=== PATIENT | female | born 1945 | race African-American/Black ===

== ENCOUNTER 2019-05-26 09:12 | Inpatient (IN) | payer MEDICARE, MEDICAID ==
[~2019-05-26] VITALS: Ht 182.9 cm; Wt 25.1 kg
[2019-05-26] MEDS ORDERED: LORAZEPAM 2MG/ML CPJ IV ONE (11:15)
[2019-05-26 12:00] LABS: BASOPHILS % 0.4 % (0.0-2.0); EOSINOPHILS % 0.4 % (0.0-5.0); HEMATOCRIT. 43.6 % (36.0-48.0); HEMOGLOBIN. 14.4 g/dL (12.0-16.0); MEAN CORPUSCULAR HEMOGLOBIN 28.8 pg (28.0-32.0); MEAN CORPUSCULAR VOLUME 86.9 fL (81.0-99.0); MEAN PLATELET VOLUME 10.3 fl (7.4-10.4); MONOCYTES % 3.9 % (2.0-8.0); NEUTROPHILS % 74.3 % (40.0-76.0); PLATELET 130 x1000/uL (130-400); RED BLOOD CELL COUNT 5.02 mill/uL (4.2-5.4); RED CELL DISTRIBUTION WIDTH 12.7 % (11.6-14.6)
[2019-05-26 14:12] LABS: CHLORIDE 105 mEq/L (98-107)
[2019-05-26 15:07] VITALS: BP 137/74
[2019-05-26] MEDS ORDERED: ZOLP5TAB2 PO (15:31)
[2019-05-26] MEDS ORDERED: MORPHINE SULFATE 2 MG/ML CPJ (NOT FOR IM USE) IV PRN ×2 (15:45→21:00)
[2019-05-26] MEDS ORDERED: SODIUM CHLORIDE 0.9% 1,000 ML IV SCH (15:45)
[2019-05-26 16:00] VITALS: BP 122/74
[2019-05-26 20:00] VITALS: BP 147/80
[2019-05-26] MEDS ORDERED: ONDANSETRON HCL 4MG/2ML INJ IV PRN (21:00)
[2019-05-26] MEDS ORDERED: ENOXAPARIN 40MG/0.4ML SYR SUBCUT SCH (21:00)
[2019-05-26] MEDS ORDERED: HYDROCODONE/ACETAMINOPHEN 5/325MG TABLET PO PRN (21:00)
[2019-05-26] MEDS ORDERED: LORAZEPAM 2MG/ML CPJ IV PRN (21:00)
[2019-05-26] MEDS ORDERED: CEFTRIAXONE 1 G PREMIX 50 ML IV SCH (22:00)
[2019-05-26] MEDS: SODIUM CHLORIDE 0.9% 1,000 ML IV SCH (23:04)
[2019-05-26] MEDS: ZOLPIDEM TARTRATE 5MG TABLET PO SCH (23:05)
[2019-05-27] VITALS: BP 108/62
[2019-05-27 04:00] VITALS: BP 117/86
[2019-05-27] MEDS: SODIUM CHLORIDE 0.9% 1,000 ML IV SCH ×2 (06:03→16:31)
[2019-05-27 07:38] LABS: BASOPHILS % 0.5 % (0.0-2.0); EOSINOPHILS % 2.5 % (0.0-5.0); HEMATOCRIT. 38.2 % (36.0-48.0); HEMOGLOBIN. 12.6 g/dL (12.0-16.0); LYMPHOCYTES % 37.3 % (20.0-50.0); MEAN CORPUSCULAR HEMOGLOBIN 28.8 pg (28.0-32.0); MEAN CORPUSCULAR VOLUME 87.2 fL (81.0-99.0); MEAN PLATELET VOLUME 10.5 fl (7.4-10.4); MONOCYTES % 5.6 % (2.0-8.0); NEUTROPHILS % 54.1 % (40.0-76.0); PLATELET 88 x1000/uL (130-400); RED BLOOD CELL COUNT 4.37 mill/uL (4.2-5.4); RED CELL DISTRIBUTION WIDTH 12.5 % (11.6-14.6)
[2019-05-27 08:00] VITALS: BP 156/78
[2019-05-27 08:35] LABS: CHLORIDE 108 mEq/L (98-107)
[2019-05-27 08:42] LABS: PHOSPHORUS 2.5 mg/dL (2.5-4.9)
[2019-05-27] MEDS: THIAMINE HCL 100MG TABLET PO SCH (09:23)
[2019-05-27] MEDS: FOLIC ACID 1MG TABLET PO SCH (09:23)
[2019-05-27 12:00] VITALS: BP 144/84
[2019-05-27] MEDS: MAGNESIUM 2 G PREMIX 50 ML IV NR ×2 (13:08→13:14)
[2019-05-27] MEDS: CEFTRIAXONE 1,000 MG in DEXTROSE 5% WATER 50 ML IV SCH (17:08)
[2019-05-27 18:31] LABS: CLARITY URINE CLEAR (CLEAR); COLOR URINE YELLOW (YELLOW); KETONES URINE NEGATIVE (NEGATIVE); LEUKOCYTE ESTERASE URINE TRACE (NEGATIVE); NITRITE URINE NEGATIVE (NEGATIVE); OCCULT BLOOD URINE NEGATIVE (NEGATIVE); PROTEIN URINE NEGATIVE (NEGATIVE); SPECIFIC GRAVITY URINE 1.018 (1.005-1.030)
[2019-05-27 18:52] LABS: *AMPHETAMINES SCREEN URINE NEGATIVE (NEGATIVE); *BENZODIAZEPINES SCREEN URINE NEGATIVE (NEGATIVE); *COCAINE SCREEN URINE NEGATIVE (NEGATIVE)
[2019-05-27 18:53] LABS: CANNABINOID URINE SCREEN NEGATIVE (NEGATIVE); METHADONE URINE SCREEN NEGATIVE (NEGATIVE); OPIATES URINE SCREEN NEGATIVE (NEGATIVE); PHENCYCLIDINE URINE SCREEN NEGATIVE (NEGATIVE)
[2019-05-27 18:57] LABS: *BARBITURATES SCREEN URINE NEGATIVE (NEGATIVE)
[2019-05-27] MEDS: ZOLPIDEM TARTRATE 5MG TABLET PO SCH (23:00)
[2019-05-28] MEDS: SODIUM CHLORIDE 0.9% 1,000 ML IV SCH ×3 (03:00→23:00)
[2019-05-28] MEDS: FOLIC ACID 1MG TABLET PO SCH (08:44)
[2019-05-28] MEDS: THIAMINE HCL 100MG TABLET PO SCH (08:44)
[2019-05-28] MEDS: MULTIVITAMINS,THER W-MINERALS TABLET PO SCH (08:44)
[2019-05-28] MEDS: CEFTRIAXONE 1,000 MG in DEXTROSE 5% WATER 50 ML IV SCH (17:31)
[2019-05-28] MEDS: MIRTAZAPINE 15MG TABLET PO SCH (20:14)
[2019-05-28] MEDS: ZOLPIDEM TARTRATE 5MG TABLET PO SCH (23:00)
[2019-05-29] MEDS: FOLIC ACID 1MG TABLET PO SCH (09:00)
[2019-05-29] MEDS: THIAMINE HCL 100MG TABLET PO SCH (09:00)
[2019-05-29] MEDS: SODIUM CHLORIDE 0.9% 1,000 ML IV SCH (09:00)
[2019-05-29] MEDS: MULTIVITAMINS,THER W-MINERALS TABLET PO SCH (09:00)
[2019-05-29] MEDS: LORAZEPAM 0.5MG TABLET PO SCH (09:00)
[2019-05-29] MEDS: RISPERIDONE 1MG TABLET PO SCH (09:00)
[2019-05-29] MEDS ORDERED: POLYETHYLENE GLYCOL 3350 (17GM) 1 DOSE PACK PO SCH (21:00)
[2019-05-29] MEDS: MIRTAZAPINE 15MG TABLET PO SCH (21:00)
[2019-05-29] MEDS: ZOLPIDEM TARTRATE 5MG TABLET PO SCH (22:58)
[2019-05-30] MEDS: MULTIVITAMINS,THER W-MINERALS TABLET PO SCH (09:00)
[2019-05-30] MEDS ORDERED: DOCUSATE SODIUM 100MG CAPSULE PO SCH (09:00)
[2019-05-30] MEDS: LORAZEPAM 0.5MG TABLET PO SCH (09:00)
[2019-05-30] MEDS: THIAMINE HCL 100MG TABLET PO SCH (09:00)
[2019-05-30] MEDS: RISPERIDONE 1MG TABLET PO SCH (09:00)
[2019-05-30] MEDS: FOLIC ACID 1MG TABLET PO SCH (09:00)
[2019-05-30 11:57] VITALS: BP 144/92
[2019-05-30] MEDS ORDERED: CEFTRIAXONE 1 G PREMIX 50 ML IV SCH (18:00)
== END 2019-05-30 12:20 | DRG 689 ==
LOC: ER 09:24 → EDBEDREQTM 11:54 → EDBEDREQ 11:54 → ENRESERV 12:00 → 6EST 14:39
PROVIDERS: ADMIT Internal Medicine Nephrology; ATTEND Internal Medicine Nephrology
DX: N39.0 Urinary tract infection, site not specified (principal); G92 Toxic encephalopathy; E44.1 Mild protein-calorie malnutrition; Z68.1 Body mass index [BMI] 19.9 or less, adult; F20.9 Schizophrenia, unspecified; F31.9 Bipolar disorder, unspecified; I10 Essential (primary) hypertension; D69.6 Thrombocytopenia, unspecified; D72.829 Elevated white blood cell count, unspecified; E83.42 Hypomagnesemia; R62.7 Adult failure to thrive; R53.81 Other malaise; R26.9 Unspecified abnormalities of gait and mobility; Z79.899 Other long term (current) drug therapy
CPT/HCPCS: 36415; 71045; 80048; 80053; 80305; 81003; 82378; 83036; 83735; 84100; 84484; 85025; 93005; 96374; 99285; J0696; J2060; J3475; J7030; J7060